=== PATIENT | female | born 1950 | race African-American/Black ===

== ENCOUNTER 2025-07-21 13:53 | Emergency (ER) | payer MEDICARE ==
[~2025-07-21] VITALS: Ht 160 cm; Wt 88.0 kg
[2025-07-21 14:03] VITALS: O2SAT 100
[2025-07-21 14:21] VITALS: BP 177/114; PULSE 94; RESP 16; TEMP 36.8; O2SAT 98
[2025-07-21 15:05] LABS: BASOPHILS % 1.2 % (0.0-2.0); EOSINOPHILS % 1.6 % (0.0-5.0); HEMATOCRIT. 44.4 % (36.0-48.0); HEMOGLOBIN. 14.6 g/dL (12.0-16.0); LYMPHOCYTES % 25.4 % (20.0-50.0); MEAN PLATELET VOLUME 8.9 fl (7.4-10.4); MONOCYTES % 8.3 % (2.0-8.0); NEUTROPHILS % 63.5 % (40.0-76.0); PLATELET 263 x1000/uL (130-400); RED BLOOD CELL COUNT 4.73 mill/uL (4.2-5.4); RED CELL DISTRIBUTION WIDTH 12.9 % (11.6-14.6)
[2025-07-21 15:19] LABS: CLARITY URINE CLEAR (CLEAR); COLOR URINE YELLOW (YELLOW); GLUCOSE URINE 3+ (NEGATIVE); KETONES URINE 1+ (NEGATIVE); LEUKOCYTE ESTERASE URINE NEGATIVE (NEGATIVE); NITRITE URINE NEGATIVE (NEGATIVE); OCCULT BLOOD URINE NEGATIVE (NEGATIVE); PH URINE 5.5 (4.5-8.0); PROTEIN URINE NEGATIVE (NEGATIVE); SPECIFIC GRAVITY URINE 1.047 (1.005-1.030); UROBILINOGEN URINE 0.2 E.U./dL (0.2-1.0)
[2025-07-21 15:22] LABS: CREATININE 0.7 mg/dL (0.6-1.0); UREA NITROGEN BLOOD 6 mg/dL (9-23)
[2025-07-21 16:31] LABS: RBC URINE 0-2 /hpf (0-2); SQUAMOUS EPITHELIAL CELL URINE 1+ /lpf (RARE/1+)
[2025-07-21 16:32] LABS: BACTERIA URINE 1+; WBC URINE 0-2 /hpf (0-2)
[2025-07-22] MEDS ORDERED: IBUP-1455 MT (13:51)
[2025-07-22] MEDS ORDERED: NITR-87 MT (13:51)
== END 2025-07-21 16:21 | disposition left against medical advice (07) ==
LOC: ER 13:53
DX: R10.84 Generalized abdominal pain (principal)
CPT/HCPCS: 36415; 80048; 81003; 85025; 93005; 99281

== ENCOUNTER 2025-07-22 11:24 | Emergency (ER) | payer MEDICARE ==
[~2025-07-22] VITALS: Ht 162.6 cm; Wt 75.0 kg
[2025-07-22 11:28] VITALS: O2SAT 99
[2025-07-22] MEDS: IBUPROFEN 600MG TABLET PO ONE (12:09)
[2025-07-22 12:13] LABS: CLARITY URINE CLEAR (CLEAR); COLOR URINE YELLOW (YELLOW); GLUCOSE URINE 3+ (NEGATIVE); KETONES URINE 1+ (NEGATIVE); LEUKOCYTE ESTERASE URINE 1+ (NEGATIVE); NITRITE URINE NEGATIVE (NEGATIVE); OCCULT BLOOD URINE NEGATIVE (NEGATIVE); PH URINE 6.5 (4.5-8.0); PROTEIN URINE 1+ (NEGATIVE); SPECIFIC GRAVITY URINE 1.039 (1.005-1.030); UROBILINOGEN URINE 0.2 E.U./dL (0.2-1.0)
[2025-07-22 12:32] LABS: BASOPHILS % 0.9 % (0.0-2.0); EOSINOPHILS % 2.0 % (0.0-5.0); HEMATOCRIT. 41.8 % (36.0-48.0); HEMOGLOBIN. 14.1 g/dL (12.0-16.0); LYMPHOCYTES % 21.3 % (20.0-50.0); MEAN PLATELET VOLUME 9.2 fl (7.4-10.4); MONOCYTES % 7.2 % (2.0-8.0); NEUTROPHILS % 68.6 % (40.0-76.0); PLATELET 234 x1000/uL (130-400); RED BLOOD CELL COUNT 4.57 mill/uL (4.2-5.4); RED CELL DISTRIBUTION WIDTH 13.2 % (11.6-14.6)
[2025-07-22 12:43] LABS: CREATININE 0.7 mg/dL (0.6-1.0); UREA NITROGEN BLOOD 11 mg/dL (9-23)
[2025-07-22 12:45] LABS: ASPARTATE AMINOTRANSFERASE 13 IU/L (<34)
[2025-07-22 12:46] LABS: BILIRUBIN DIRECT 0.2 mg/dL (<=3.0); BILIRUBIN TOTAL 0.8 mg/dL (0.1-1.0); PROTEIN TOTAL 7.1 g/dL (6.0-8.3)
[2025-07-22 13:38] LABS: BACTERIA URINE 3+; RBC URINE 0-2 /hpf (0-2); SQUAMOUS EPITHELIAL CELL URINE 2+ /lpf (RARE/1+)
[2025-07-22] MEDS ORDERED: IBUP-1455 MT (13:51)
[2025-07-22] MEDS ORDERED: NITR-87 MT (13:51)
[2025-07-22 14:34] VITALS: BP 182/119; PULSE 80; RESP 13; TEMP 37; O2SAT 99
== END 2025-07-22 14:37 | disposition home or self-care (01) ==
LOC: ER 11:28
DX: N30.00 Acute cystitis without hematuria (principal); E11.9 Type 2 diabetes mellitus without complications; I10 Essential (primary) hypertension; Z86.73 Personal history of transient ischemic attack (TIA), and cerebral infarction without residual deficits
CPT/HCPCS: 36415; 74176; 80048; 80076; 81003; 85025; 93005; 99284